=== PATIENT | male | born 1940 | race Caucasian/White ===

== ENCOUNTER 2018-10-12 21:28 | Emergency (ER) | payer MEDICARE, OTHER, SELFPAY ==
[2018-10-12 21:40] VITALS: BP 134/79; PULSE 76; RESP 14; TEMP 36.8; O2SAT 96; BMI 26.3
--- NOTE | 2018-10-12 21:54 | PC.NURSE ---
Pt fell at approx 2030,laceration above left eyebrow. Pt denies pain, denies LOC or blood thinners. Pt alert/oriented upon arrival.
[2018-10-12] MEDS: TET,DIPH,PERTUSS(ACELL),VAC/PF 0.5 ML SYRINGE IM (23:00)
--- NOTE | 2018-10-12 23:31 | PC.NURSE ---
Pt refused Head CT ordered, Dr white.
--- NOTE | 2018-10-12 23:48 | ED_ITS ---
HPI - Wound/Laceration General Chief Complaint: Wound/Laceration Stated Complaint: LACERATION LEFT UPPER SIDE Time Seen by Provider: 10/12/18 22:50 Source: patient and family Mode of arrival: ambulatory Limitations: no limitations History of Present Illness HPI narrative: Patient and state the patient jumped off the tailgate of a truck, and landed on a downsloping driveway. Patient stumbled as he landed, and fell down, striking his face on the pavement. He sustained a an abrasion and laceration to his left face. Patient denies any other injuries. He denies loss of consciousness. No neck or other spinal pain. He was ambulatory after the incident. No amnesia. No extremity pain. No rib pain. No other complaints at this time. Related Data Allergies Allergy/AdvReac Type Severity Reaction Status Date / Time No Known Drug Allergies Allergy Verified 10/12/18 21:40 Review of Systems Constitutional Denies chills, Denies fever(s), Denies lethargy and Denies weakness Eyes Denies change in vision, Denies eye discharge, Denies irritation and Denies loss of vision ENT Ears, Nose, Mouth, and Throat: Denies change in voice, Denies neck pain and Denies sore throat Cardiovascular Denies chest pain, Denies irregular heart rhythm, Denies lightheadedness, Denies palpitations, Denies dyspnea, Denies dyspnea on exertion and Denies orthopnea Respiratory Denies cough, Denies dyspnea, Denies dyspnea on exertion and Denies wheezing Gastrointestinal Gastrointestinal: Denies abdominal pain, Denies change in bowel habits, Denies diarrhea, Denies nausea and Denies vomiting Genitourinary Denies hematuria, Denies flank pain, Denies urinary incontinence and Denies urinary urgency Musculoskeletal Denies neck pain Integumentary/Breasts Denies pruritus, Denies erythema, Denies rash and Reports wounds Neurologic Denies confusion, Denies loss of vision and Denies weakness Psychiatric Denies anxiety, Denies confusion, Denies depression, Denies homicidal ideation and Denies suicidal ideation Endocrine Denies palpitations Hematologic/Lymphatic Denies easy bruising Allergic/Immunologic Denies wheezing [facility] Medical History Healthy adult (Acute) Laceration (Acute) Surgical History No pertinent past surgical history (Acute) Social History Smoking Status: Never smoker Exam Initial Vital Signs Initial Vital Signs: Vital Signs Temperature 98.3 F 10/12/18 21:40 Pulse Rate 76 10/12/18 21:40 Respiratory Rate 14 10/12/18 21:40 Blood Pressure 134/79 10/12/18 21:40 Pulse Oximetry 96 10/12/18 21:40 Const General: cooperative and well developed Nutritional Appearance: well nourished Orientation: alert, awake, oriented x3 and not confused [facility] Head: normocephalic, abrasion (Superficial, left lateral maxillary area.), laceration (Patient has a 2.5 cm laceration about 1 cm superior to his lateral left eyebrow. Bleeding is controlled. No foreign bodies are noted. No bony deformity.), No palpable skull fracture, No raccoon eyes, No scalp tenderness and No periorbital ecchymosis Ears: external ears normal Nose: external nose normal and No nasal discharge Face and sinus: face symmetric and No dry mucous membranes Mouth: oral mucosae normal and moist mucous membranes Teeth and gingiva: dentition normal Throat: tonsils normal and uvula midline Eyes General: appearance normal, both eyes and all related structures Eyelids: eyelids normal Conjunctivae: conjunctivae normal Sclera: sclerae normal Pupils: PERRL EOM: EOM intact bilaterally Neck Neck: normal visual inspection, trachea midline, No lymphadenopathy, No midline deformity and No JVD Lymphatic: No lymphedema Chest Chest: normal inspection of the chest Resp Effort & Inspection: normal respiratory effort, able to speak in complete sentences, no respiratory distress and no use of accessory muscles GI Inspection: non-distended Palpation: soft, no hepatosplenomegaly, No guarding, No pulsatile mass and No tender Auscultation: normal bowel sounds Back/Spine/Pelvis Back: No CVA tenderness Cervical Spine: cervical ROM normal and No pain with cervical ROM Thoracic/Lumbar Spine: thoracic and lumbar spine normal to inspection Skin General: no rashes or lesions noted, No jaundice and No petechiae Neuro General: alert, oriented x3, gait normal and no focal motor deficits Speech: speech normal Extrem General: full ROM, no clubbing, cyanosis or edema, no pedal edema and no calf tenderness Psych Appearance: well kempt Mental Status: mental status grossly normal Attitude: cooperative Thought Content: normal and suicidality Judgment: judgment good Procedures Laceration Repair Laceration 1: Site: face Side (If applicable): left Size (cm): 2.5 Description: linear Depth: simple, single layer Local Anesthetic: lidocaine 2% Amount of anesthesia used (mL): 4 Pre-repair: wound explored, irrigated extensively and deep structures intact Skin layer closed with: nylon Size (cm): 5-0 Number of sutures: 6 Technique: simple, interrupted Course Course Narrative: Patient's laceration was repaired, as noted above. The patient was not on any anticoagulants, but given his age and the location of injury, I feel he should have a CT scan of his head. However, patient refused head CT. He was alert, oriented, and appropriate, and understands the risks associated with increased age and head injury, but refuses CT anyway. We have discussed the usual indications for return. Orders Ordered: Discontinued Medications Diphtheria/Tetanus/Acell Pertussis (Adacel) 0.5 ml IM .ONCE ONE Stop: 10/12/18 23:39 Last Admin: 10/12/18 23:00 Dose: 0.5 ml Vital Signs - 8 hr 10/12/18 21:40 Temperature 98.3 F Pulse Rate 76 Respiratory Rate 14 Blood Pressure 134/79 Pulse Oximetry 96 MDM - Wound/Laceration Medical Records Attestation: I reviewed the patient's medical records. Discharge Plan Departure Patient Disposition: Home Clinical Impression: Laceration Discharge Date/Time: 10/12/18 23:46 Interventions: ED Discharge Assessment Last Done: 10/12/18 23:46 Instructions: DI for Laceration Repair Activity Restrictions/Additional Instructions: You will need to follow up with your doctor in 7 days for suture removal. Referrals: Darius Zhao MD [Primary Care Provider] -
== END 2018-10-12 23:46 | disposition home or self-care (01) ==
PROVIDERS: Emergency Provider Emergency Medicine; PCP Family Medicine
DX: S01.81XA Laceration without foreign body of other part of head, initial encounter (principal); W18.00XA Striking against unspecified object with subsequent fall, initial encounter
CPT/HCPCS: 12011; 90471; 99283; 90715

== ENCOUNTER 2023-03-25 17:49 | Observation (INO) | payer MEDICARE, OTHER, SELFPAY ==
[2023-03-25 17:52] VITALS: BP 147/76; PULSE 103; RESP 16; TEMP 36.7; O2SAT 99; BMI 25.7
--- NOTE | 2023-03-25 19:36 | DI.RAD.S_ITS ---
PROCEDURE: XR ACUTE ABDOMEN SERIES INDICATIONS: abdominal pain TECHNIQUE: One view chest and two views of the abdomen were acquired. COMPARISON: [facility], CR, XR CHEST 2 VIEWS, 12/09/2021, 10:30. FINDINGS: Surgical changes and devices: None. Chest: Heart size is normal for an AP study. There are bilateral lower lobe infiltrates. No pneumothorax or pleural effusion. Abdomen: Multiple air-fluid levels throughout the abdomen consistent with small bowel obstruction. No free air, pneumatosis, or portal venous gas. There is impacted stool in the rectum. No suspicious calcifications. Visualized solid organ contours appear normal. Bones: No suspicious bony lesions. IMPRESSION: 1. Bilateral lower lobe infiltrates consistent with atelectasis and/or pneumonia. 2. Multiple air-fluid levels in the abdomen consistent with small bowel obstruction. Dictated by: Andres Mayers M.D. on 03/25/2023 at 19:00 Approved by: Andres Mayers M.D. on 03/25/2023 at 19:02
[2023-03-25 20:05] VITALS: BP 132/73; PULSE 91; O2SAT 96
[2023-03-25 20:16] LABS: Add Manual Diff / Slide Review NO; Basophils Absolute Auto 0 /uL (0-100); Basophils Percent Auto 0.3 % (0-2); Eosinophils Absolute Auto 0 /uL (0-450); Eosinophils Percent Auto 0.1 % (2-4); Hematocrit 39.9 % (41-53); Hemoglobin 13.5 g/dL (13.5-17.5); Lymphocytes Absolute Auto 800 /uL (1100-4500); Lymphocytes Percent Auto 6.2 % (25-40); Mean Corpuscular Hemoglobin 31.4 PG (26-34); Mean Corpuscular Volume 92.4 fL (80-100); Monocytes Absolute Auto 1300 /uL (0-900); Monocytes Percent Auto 9.7 % (3-14); Neutrophils Absolute Auto 11100 /uL (1500-7000); Neutrophils Percent Auto 83.7 % (50-75); Platelet Count 192 X10^3/uL (150-400); Red Blood Cell Count 4.31 X10^6/uL (4.5-5.9); Red Cell Distribution Width 14.1 % (11.6-14.8); White Blood Cell Count 13.3 X10^3/uL (4.5-11.0)
[2023-03-25 20:30] VITALS: BP 131/74; PULSE 79; O2SAT 98
[2023-03-25 20:32] LABS: Alanine Aminotransferase 20 IU/L (<50); Albumin 3.8 g/dL (3.5-5.0); Albumin Globulin Ratio 1.5 (1.0-2.8); Alkaline Phosphatase 79 U/L (38-126); Aspartate Aminotransferase 30 IU/L (17-59); BUN Creatinine Ratio 20.5 (6-22); Bilirubin Total 1.3 mg/dL (0.2-1.3); Blood Urea Nitrogen 15 mg/dL (9-20); Calcium 8.7 mg/dL (8.4-10.2); Carbon Dioxide 28 mmol/L (22-32); Chloride 101 mmol/L (98-107); Estimated Glomerular Filt Rate > 60 mL/min (>60); Globulin 2.6 g/dL (1.7-4.1); Glucose 107 mg/dL (80-110); HEMOLYSIS 21 (0-50); Lipase 31 U/L (23-300); Potassium 4.3 mmol/L (3.4-5.1); Sodium 135 mmol/L (137-145); Total Protein 6.4 g/dL (6.3-8.2)
--- NOTE | 2023-03-25 20:48 | ED.ABDPAIN ---
HPI - Abdominal Pain General Chief Complaint: Abdominal Pain Stated Complaint: constipation Time Seen by Provider: 03/25/23 18:11 History of Present Illness HPI narrative: 82-year-old male nonsmoker with history of coronary artery disease, hypertension, hyperlipidemia and no prior abdominal surgeries presents with a chief complaint of a few days of constipation and building abdominal pain. He became severely constipated last night and though he is still passing gas he had not passed any stool as the day wore on. He took 2 different stool softeners this morning and proceeded to develop multiple episodes of loose stool. He has waxing and waning lower abdominal pain that seems to be worse when he moves and improves with rest. He denies any prior abdominal surgeries. He is still passing gas. He denies change in medications or diet. Related Data Home Medications Medication Instructions Recorded Confirmed aspirin 81 mg tablet,delayed 81 mg PO DAILY 03/25/23 03/25/23 release atorvastatin 80 mg tablet 80 mg PO BEDTIME 03/25/23 03/25/23 finasteride 5 mg tablet 5 mg PO DAILY 03/25/23 03/25/23 levothyroxine 100 mcg tablet 100 mcg PO DAILY 03/25/23 03/25/23 metoprolol succinate 25 mg 25 mg PO BEDTIME 03/25/23 03/25/23 tablet,extended release 24 hr tamsulosin 0.4 mg capsule 0.4 mg PO DAILY 03/25/23 03/25/23 Allergies Allergy/AdvReac Type Severity Reaction Status Date / Time No Known Drug Allergies Allergy Verified 03/25/23 17:52 Review of Systems Review of Systems Narrative: GENERAL: Denies chills, fatigue, malaise, fever, sweats. HEENT: Denies sinus pain, ear pain, sore throat, difficulty swallowing, dizziness. RESPIRATORY: Denies dyspnea, cough, wheezing, hemoptysis, sputum. CARDIOVASCULAR: Denies chest pain, palpitations, orthopnea, edema, GASTROINTESTINAL: See HPI : Denies dysuria, frequency, incontinence, hematuria, urinary retention. MUSCULOSKELETAL: denies weakness, joint pain, or bony pain SKIN: Denies rash, skin lesions, or other NEUROLOGIC: Denies weakness, headache, numbness, change in speech, confusion, seizures, incoordination. PSYCHIATRIC: No concerning psychosocial issues. 12 point review of systems is negative except for those stated above Patient History Medical History (Updated 03/25/23 @ 23:14 by Renato Krishna DO) Healthy adult Laceration Surgical History No pertinent past surgical history Social History household members: spouse Smoking Status: Never smoker alcohol intake: current Smoking Status: Never smoker alcohol intake frequency: 0-2 drinks per day Substance Use Type: does not use Exam Narrative Exam Narrative: GENERAL: [82] year old patient appears stated age. Well-developed patient, in mild distress. HEAD: Atraumatic. Normocephalic. EYES: Pupils equal round and reactive. Extraocular motions intact. No scleral icterus. No injection or drainage. ENT: Nose without bleeding, purulent drainage. Throat without erythema, tonsillar hypertrophy or exudate. Airway patent. NECK: Trachea midline. Non tender CARDIOVASCULAR: Regular rate and rhythm without murmurs, gallops, or rubs. RESPIRATORY: Clear to auscultation. Breath sounds equal bilaterally. No wheezes, rales, or rhonchi. GASTROINTESTINAL: Abdomen soft, tender in the central lower abdomen, bowel sounds present but decreased, at times high pitched. EXTREMITIES: No edema or joint tenderness. BACK: Nontender without deformity or crepitance. No flank tenderness. NEURO: AOx3. SKIN: No rash or erythema of visible areas Initial Vital Signs Initial Vital Signs: Vital Signs Temperature 98.0 F 03/25/23 17:52 Pulse Rate 103 H 03/25/23 17:52 Respiratory Rate 16 03/25/23 17:52 Blood Pressure 147/76 H 03/25/23 17:52 Pulse Oximetry 99 03/25/23 17:52 Oxygen Delivery Method Room Air 03/25/23 17:52 Course Orders Ordered: ED Orders 03/25/23 18:00 EKG-12 Lead Stat 03/25/23 19:36 XR acute abdomen series Stat 03/25/23 20:08 Complete Blood Count AUTO DIFF Stat Comprehensive Metabolic Panel Stat Lipase Stat Heparin Sodium (Porcine) (Heparin 5,000 Unit/Ml Vial) 5,000 unit SUBCUT BID KASEY Hydromorphone HCl (Hydromorphone 0.5 Mg Inj) 0.5 mg IV Q2H PRN PRN Reason: Pain, Severe (7-10) Dextrose/Sodium Chloride (Dextrose 5%-0.45% Ns) 1,000 mls @ 100 mls/hr IV CONT KASEY Last Admin: 03/25/23 22:44 Dose: 100 mls/hr Documented By: SCOTTIE Naloxone HCl (Naloxone 0.4 Mg/Ml Vial) 0.2 mg IV Q2MIN PRN PRN Reason: Opiate Reversal Ondansetron HCl (Ondansetron 4 Mg Odt) 4 mg PO NOW PRN PRN Reason: Nausea And Vomiting Ondansetron HCl (Ondansetron 4 Mg/2 Ml Inj) 4 mg IV NOW PRN PRN Reason: Nausea And Vomiting Ondansetron HCl (Ondansetron 4 Mg/2 Ml Inj) 4 mg IV Q8HR PRN PRN Reason: Nausea And Vomiting Consultations Consultation #1: discussed with Dr. Castanon. Happy to consult, request admission to Hospital Vital Signs Vital signs: Vital Signs - 8 hr 03/25/23 17:52 03/25/23 20:05 03/25/23 20:05 Temperature 98.0 F Pulse Rate 103 H 91 H Respiratory Rate 16 Blood Pressure 147/76 H 132/73 Pulse Oximetry 99 96 Oxygen Delivery Method Room Air 03/25/23 20:30 03/25/23 20:30 03/25/23 21:00 Temperature Pulse Rate 79 Respiratory Rate Blood Pressure 131/74 139/70 Pulse Oximetry 98 Oxygen Delivery Method 03/25/23 21:00 Temperature Pulse Rate 69 Respiratory Rate Blood Pressure Pulse Oximetry 99 Oxygen Delivery Method MDM - Abdominal Pain Lab Data 03/25/23 20:08 03/25/23 20:08 Labs: Lab Results 03/25/23 03/25/23 Range/Units 20:08 20:08 WBC 13.3 H (4.5-11.0) X10^3/uL RBC 4.31 L (4.5-5.9) X10^6/uL Hgb 13.5 (13.5-17.5) g/dL Hct 39.9 L (41-53) % MCV 92.4 (80-100) fL MCH 31.4 (26-34) PG MCHC 34.0 (30-36) % RDW 14.1 (11.6-14.8) % Plt Count 192 (150-400) X10^3/uL Neut % (Auto) 83.7 H (50-75) % Lymph % (Auto) 6.2 L (25-40) % [place] % (Auto) 9.7 (3-14) % Eos % (Auto) 0.1 L (2-4) % Baso % (Auto) 0.3 (0-2) % Neut # (Auto) 01329 H (3419-9267) /uL Lymph # (Auto) 800 L (4943-5892) /uL [place] # (Auto) 1300 H (0-900) /uL Eos # (Auto) 0 (0-450) /uL Baso # (Auto) 0 (0-100) /uL Sodium 135 L (137-145) mmol/L Potassium 4.3 (3.4-5.1) mmol/L Chloride 101 (98-107) mmol/L Carbon Dioxide 28 (22-32) mmol/L BUN 15 (9-20) mg/dL Creatinine 0.73 (0.66-1.25) mg/dL Estimated GFR > 60 (>60) mL/min BUN/Creatinine Ratio 20.5 (6-22) Glucose 107 (80-110) mg/dL Calcium 8.7 (8.4-10.2) mg/dL Total Bilirubin 1.3 (0.2-1.3) mg/dL AST 30 (17-59) IU/L ALT 20 (<50) IU/L Alkaline Phosphatase 79 (38-126) U/L Total Protein 6.4 (6.3-8.2) g/dL Albumin 3.8 (3.5-5.0) g/dL Globulin 2.6 (1.7-4.1) g/dL Albumin/Globulin Ratio 1.5 (1.0-2.8) Lipase 31 (23-300) U/L Discharge Plan Departure Patient Disposition: Admitted As Inpatient Clinical Impression: Small bowel obstruction Admit Date/Time: 03/25/23 21:38 Admit Provider: Jay Diaz
[2023-03-25 21:00] VITALS: BP 139/70; PULSE 69; O2SAT 99
[2023-03-25 21:39] VITALS: BMI 25.7
[2023-03-25 21:41] VITALS: BP 149/70; PULSE 79; RESP 18; TEMP 37.2; O2SAT 94
--- NOTE | 2023-03-25 22:04 | P.HP_ITS ---
History of Present Illness History of Present Illness Date Patient Seen: 03/25/23 Time Patient Seen: 22:05 Chief complaint: constipation Narrative: The patient is a 82-year-old male with a history of CAD, hypertension, and hyperlipidemia as well as chronic BPH. He has 1-2 days' history of lower abdominal pain, lack of flatus. Because of persistent intermittent abdominal pain he presented to the ED. There imaging included a chest and abdomen x-ray revealing multiple air-fluid levels and bibasilar lung atelectasis. He denies any chest pain, or shortness of breath. No recent symptoms of cough, fevers or chills. He has no history of abdomen surgery. He would a colonoscopy 5 years ago, this was said to be fairly unremarkable. He denies a history of episode similar to what is happening now. He denies any nausea or vomiting. He had a little bit of abdominal distention. He denies flatus today. No bowel movement since yesterday. No hematemesis, or rectal bleeding. The ED physician discussed with surgery on-call, Dr. Beck. They will see the patient in the morning. PENDING SALE TO [facility] Medical History Healthy adult Laceration Surgical History No pertinent past surgical history Social History household members: spouse Smoking Status: Never smoker alcohol intake: current Meds Home Medications and Allergies Home Medications Medication Instructions Recorded Confirmed Type aspirin 81 mg tablet,delayed 81 mg PO DAILY 03/25/23 03/25/23 History release atorvastatin 80 mg tablet 80 mg PO BEDTIME 03/25/23 03/25/23 History finasteride 5 mg tablet 5 mg PO DAILY 03/25/23 03/25/23 History levothyroxine 100 mcg tablet 100 mcg PO DAILY 03/25/23 03/25/23 History metoprolol succinate 25 mg 25 mg PO BEDTIME 03/25/23 03/25/23 History tablet,extended release 24 hr tamsulosin 0.4 mg capsule 0.4 mg PO DAILY 03/25/23 03/25/23 History Allergies Allergy/AdvReac Type Severity Reaction Status Date / Time No Known Drug Allergies Allergy Verified 03/25/23 17:52 Review of Systems Review of Systems Narrative: Abdomen pain and constipation with no flatus for 1 day. No N,V. No chest pain or dyspnea. Chronic nocturia (on flomax). All else reviewed and otherwise negative. Exam Vital Signs (past 8 hours): - 03/25/23 17:52 03/25/23 20:05 03/25/23 20:05 Temperature 98.0 F Pulse Rate 103 H 91 H Respiratory Rate 16 Blood Pressure 147/76 H 132/73 Pulse Oximetry 99 96 Oxygen Delivery Method Room Air Oxygen Flow Rate 03/25/23 20:30 03/25/23 20:30 03/25/23 21:00 Temperature Pulse Rate 79 Respiratory Rate Blood Pressure 131/74 139/70 Pulse Oximetry 98 Oxygen Delivery Method Oxygen Flow Rate 03/25/23 21:00 03/25/23 21:41 Temperature 98.9 F Pulse Rate 69 79 Respiratory Rate 18 Blood Pressure 149/70 H Pulse Oximetry 99 94 Oxygen Delivery Method Oxygen Flow Rate 0 Oxygen Delivery Method Room Air Oxygen Flow Rate 0 Narrative Exam Narrative: Normal affect and speech, NAD. Conjugate gaze, no facial droop. Neck supple, normal range of motion Lungs clear with normal effort Heart regular, no murmur. Abdomen ND and NT. Hyperactive BT's Extremities free of edema Skin no rash. Good pulses Objective Imaging Abdominal x-ray: Radiologist's impression: IMPRESSION:? 1. Bilateral lower lobe infiltrates consistent with atelectasis and/or pneumonia. 2. Multiple air-fluid levels in the abdomen consistent with small bowel obstruction.? ? Labs 03/25/23 20:08 03/25/23 20:08 Labs: Laboratory Results - last 24 hr 03/25/23 03/25/23 20:08 20:08 WBC 13.3 H RBC 4.31 L Hgb 13.5 Hct 39.9 L MCV 92.4 MCH 31.4 MCHC 34.0 RDW 14.1 Plt Count 192 Neut % (Auto) 83.7 H Lymph % (Auto) 6.2 L [place] % (Auto) 9.7 Eos % (Auto) 0.1 L Baso % (Auto) 0.3 Neut # (Auto) 12119 H Lymph # (Auto) 800 L [place] # (Auto) 1300 H Eos # (Auto) 0 Baso # (Auto) 0 Sodium 135 L Potassium 4.3 Chloride 101 Carbon Dioxide 28 BUN 15 Creatinine 0.73 Estimated GFR > 60 BUN/Creatinine Ratio 20.5 Glucose 107 Calcium 8.7 Total Bilirubin 1.3 AST 30 ALT 20 Alkaline Phosphatase 79 Total Protein 6.4 Albumin 3.8 Globulin 2.6 Albumin/Globulin Ratio 1.5 Lipase 31 Assessment & Plan Assessment & Plan narrative: 1. Small bowel obstruction, present on admission and active. 2. Lung atelectasis on CXR, present on admission and active. 3. Chronic BPH, present on admission and active. 4. CAD, present on admission and stable. 5. Essential hypertension, present on admission and stable. 6. Hypothyroidism, present on admission and stable. Plan: -NPO -IVF -Analgesia prn -Surgical consult (Dr Castanon contacted by ED). -Follow lungs clinically -resume Flomax when able and watch for retention. -resume other medications when able, and watch for symptoms of dyspnea or chest pain. Full code Time Spent With Patient Time with patient: 30 to 49 minutes with 50% spent counseling/coordinating care Quality MIPS - Admit I confirm the patient?s Advance Care Plan is present, Code status is documented, Surrogate decision maker is in patient?s record [If Yes, STOP here]: Yes
[2023-03-25] MEDS: DEXTROSE 5%-0.45% NS 1,000 ML 100 ML IV (22:44)
[2023-03-26 00:29] LABS: Appearance Urine UA CLEAR; Bilirubin Urine UA NEGATIVE (NEGATIVE); Color Urine UA YELLOW; Glucose Urine UA NEGATIVE (Negative); Ketones Urine UA 2+ (NEGATIVE); Leukocyte Esterase Urine UA NEGATIVE (NEGATIVE); Nitrite Urine UA NEGATIVE (Negative); Occult Blood Urine UA TRACE-INTACT (Negative); Protein Urine UA NEGATIVE (Negative); pH Urine UA 6.5 (4.5-8.0)
[2023-03-26 00:45] LABS: Bacteria Urine None Seen; Culture Indicated Urine Cult Not Indicated; RBC Urine 1-5/HPF (0-5/HPF); Squamous Epithelial Cell Urine None Seen (0-5/HPF); WBC Urine None Seen (0-5/HPF)
[2023-03-26 04:30] VITALS: BP 117/66; PULSE 72; RESP 18; TEMP 37; O2SAT 96
--- NOTE | 2023-03-26 04:58 | PC.NURSE ---
Admit/NOC Shift Note- Patient arrived to room via stretcher from ER at 2130. Patient able to walk with steady gait from Stretcher to bed and to bathroom. Patient alert and oriented and able to make needs known to staff. Admit questions done, home medications reviewed with patient and medication list provided. Patient oriented to bed and bed controls, room, lights, phone, menu, bathroom, and call springer/TV remote. patient agrees to call for assistance due to SCD's and IV line. safety measures in place. Call springer and phone within reach. will continue to monitor.
[2023-03-26 05:07] LABS: BUN Creatinine Ratio 17.8 (6-22); Blood Urea Nitrogen 13 mg/dL (9-20); Calcium 8.3 mg/dL (8.4-10.2); Carbon Dioxide 27 mmol/L (22-32); Chloride 103 mmol/L (98-107); Estimated Glomerular Filt Rate > 60 mL/min (>60); Glucose 121 mg/dL (80-110); HEMOLYSIS 18 (0-50); Potassium 3.8 mmol/L (3.4-5.1); Sodium 133 mmol/L (137-145)
[2023-03-26 05:08] LABS: Add Manual Diff / Slide Review NO; Basophils Absolute Auto 0 /uL (0-100); Basophils Percent Auto 0.2 % (0-2); Eosinophils Absolute Auto 100 /uL (0-450); Eosinophils Percent Auto 1.3 % (2-4); Hematocrit 38.6 % (41-53); Hemoglobin 13.1 g/dL (13.5-17.5); Lymphocytes Absolute Auto 1100 /uL (1100-4500); Lymphocytes Percent Auto 10.1 % (25-40); Mean Corpuscular HGB Conc 34.1 % (30-36); Mean Corpuscular Hemoglobin 31.4 PG (26-34); Mean Corpuscular Volume 92.3 fL (80-100); Monocytes Absolute Auto 1400 /uL (0-900); Monocytes Percent Auto 12.4 % (3-14); Neutrophils Absolute Auto 8500 /uL (1500-7000); Platelet Count 196 X10^3/uL (150-400); Red Blood Cell Count 4.18 X10^6/uL (4.5-5.9); Red Cell Distribution Width 14.6 % (11.6-14.8); White Blood Cell Count 11.2 X10^3/uL (4.5-11.0)
--- NOTE | 2023-03-26 07:22 | PM.PN.1 ---
Subjective Subjective Interval history: 82-year-old gentleman with coronary artery disease, hypertension, hyperlipidemia, BPH who was admitted overnight with suspected small-bowel obstruction. Reports he is feeling okay today. He continues to be frustrated that he has not had a bowel movement. No significant abdominal pain but he does describe his abdomen is feeling hard. No nausea. No other complaints. Exam Vital Signs (past 8 hours): - 03/26/23 04:30 Temperature 98.6 F Pulse Rate 72 Respiratory Rate 18 Blood Pressure 117/66 Pulse Oximetry 96 Oxygen Flow Rate 0 Oxygen Delivery Method Room Air Oxygen Flow Rate 0 Narrative Exam Narrative: GEN: Pleasant elderly male, Alert and oriented x 3, NAD HEENT:NC, Face symmetric CHEST: Respiratory excursions symmetric, CTAB CV: RRR, no M/R/G ABD: Slightly firm, NT/ND, BT present in all 4 quadrants, no organomegaly or masses EXTR: warm, well perfused, no C/C/E SKIN: warm and dry, no rash NEURO: Alert and oriented x 3, nonfocal Objective Labs 03/26/23 04:50 03/26/23 04:50 Labs: Laboratory Results - last 24 hr 03/25/23 03/25/23 03/25/23 20:08 20:08 23:36 WBC 13.3 H RBC 4.31 L Hgb 13.5 Hct 39.9 L MCV 92.4 MCH 31.4 MCHC 34.0 RDW 14.1 Plt Count 192 Neut % (Auto) 83.7 H Lymph % (Auto) 6.2 L [place] % (Auto) 9.7 Eos % (Auto) 0.1 L Baso % (Auto) 0.3 Neut # (Auto) 36034 H Lymph # (Auto) 800 L [place] # (Auto) 1300 H Eos # (Auto) 0 Baso # (Auto) 0 Sodium 135 L Potassium 4.3 Chloride 101 Carbon Dioxide 28 BUN 15 Creatinine 0.73 Estimated GFR > 60 BUN/Creatinine Ratio 20.5 Glucose 107 Calcium 8.7 Total Bilirubin 1.3 AST 30 ALT 20 Alkaline Phosphatase 79 Total Protein 6.4 Albumin 3.8 Globulin 2.6 Albumin/Globulin Ratio 1.5 Lipase 31 Urine Color Yellow Urine Appearance Clear Urine pH 6.5 Ur Specific [place] 1.010 Urine Protein Negative Urine Glucose (UA) Negative Urine Ketones 2+ H Urine Occult Blood Trace-intact Urine Nitrate Negative Urine Bilirubin Negative Urine Urobilinogen 1.0 Ur Leukocyte Esterase Negative Urine RBC 1-5/hpf Urine WBC None seen Ur Squamous Epith Cells None seen Urine Bacteria None seen Ur Culture Indicated? Cult not indicated 03/26/23 03/26/23 04:50 04:50 WBC 11.2 H RBC 4.18 L Hgb 13.1 L Hct 38.6 L MCV 92.3 MCH 31.4 MCHC 34.1 RDW 14.6 Plt Count 196 Neut % (Auto) 76.0 H Lymph % (Auto) 10.1 L [place] % (Auto) 12.4 Eos % (Auto) 1.3 L Baso % (Auto) 0.2 Neut # (Auto) 8500 H Lymph # (Auto) 1100 [place] # (Auto) 1400 H Eos # (Auto) 100 Baso # (Auto) 0 Sodium 133 L Potassium 3.8 Chloride 103 Carbon Dioxide 27 BUN 13 Creatinine 0.73 Estimated GFR > 60 BUN/Creatinine Ratio 17.8 Glucose 121 H Calcium 8.3 L Total Bilirubin AST ALT Alkaline Phosphatase Total Protein Albumin Globulin Albumin/Globulin Ratio Lipase Urine Color Urine Appearance Urine pH Ur Specific [place] Urine Protein Urine Glucose (UA) Urine Ketones Urine Occult Blood Urine Nitrate Urine Bilirubin Urine Urobilinogen Ur Leukocyte Esterase Urine RBC Urine WBC Ur Squamous Epith Cells Urine Bacteria Ur Culture Indicated? ON LICENSE OF [facility] Medical History (Updated 03/25/23 @ 23:14 by Renato Krishna DO) Healthy adult Laceration Surgical History No pertinent past surgical history Social History household members: spouse Smoking Status: Never smoker alcohol intake: current Assessment & Plan Assessment & Plan narrative: 1. Small-bowel obstruction X-ray on admission revealed multiple air-fluid levels in the abdomen consistent with small-bowel obstruction. Will obtain abdominal CT to evaluate for transition point. May benefit from Gastrografin challenge. Will defer to General surgery. 2. Leukocytosis On admission his white blood cell count was 13.3. It is down to 11.2 today. Likely reactive in nature. 3. Hyponatremia Sodium was 135 on admission. It is down to 133 today. Likely secondary to decreased oral intake with a bowel obstruction. 4. Mild anemia Hemoglobin was 13.5 on admission and just mildly anemic today at 13.1. 5. Coronary artery disease At baseline, he is on aspirin, atorvastatin, and metoprolol. These are being held for now as he is NPO. 6. Hypertension Blood pressure currently normotensive despite being off of his metoprolol. 7. Bilateral infiltrates on chest x-ray, reflecting atelectasis versus pneumonia He has been afebrile with normal respiratory rate and oxygen saturations. Suspect likely atelectasis. Will add incentive spirometer. 8. BPH Typically treated with tamsulosin and finasteride. These have been held due to his NPO status. Will monitor for urinary retention. 9. Hypothyroidism Usual dose of levothyroxine is 100 mcg daily. This has been held as he is NPO. Code status Full Prophylaxis On heparin Disposition Pending Quality VTE Deep Vein Thrombosis/Pulmonary Embolism Present on Admission: No
--- NOTE | 2023-03-26 07:26 | DI.CT.S_ITS ---
PROCEDURE: CT ABDOMEN PELVIS W CON INDICATIONS: SMALL BOWEL OBSTRUCTION TECHNIQUE: After the administration of intravenous contrast, axial sections acquired from the lung bases to the pubic symphysis. Coronal and sagittal reformats were performed. For radiation dose reduction, the following was used: automated exposure control, adjustment of mA and/or kV according to patient size. COMPARISON: None. FINDINGS: Image quality: Excellent. Lung bases: Unremarkable. Heart: No significant findings. ABDOMEN: Liver: Unremarkable. Gallbladder: Unremarkable. Biliary ducts: Unremarkable. Pancreas: Unremarkable. Spleen: Subcentimeter hypoattenuating lesions, likely benign. Adrenal Glands: 1.4 cm right adrenal nodule with indeterminate attenuation. Kidneys and Ureters: Renal sinus cysts without hydronephrosis. Stomach and Bowel: Normal colonic caliber. There is a large rectal and sigmoid colonic stool load. No asymmetrical rectal wall thickening. Peritoneum: Mild fat stranding and presacral free fluid. Ventral Wall: Tiny umbilical hernia containing fat Abdominal Nodes: No retroperitoneal or mesenteric adenopathy by size criteria. Vessels: Aorta and inferior vena cava are normal in size. PELVIS: Pelvic Organs: Prostatomegaly. Bladder: Bladder wall diverticula, consistent with chronic outlet obstruction. Pelvic Nodes: No enlarged lymph nodes. Miscellaneous: No hernias are seen. Bones: Multilevel vertebral body height loss without endplate retropulsion.. IMPRESSION: Large rectal and sigmoid colonic stool load, without asymmetric wall thickening. However, presacral edema is present, which may suggest early stercoral proctitis in the appropriate clinical setting. No bowel obstruction. Right adrenal nodule measuring 1.4 cm, with indeterminate attenuation. Consider follow-up with nonurgent adrenal mass CT for further characterization. Dictated by: Everton Holland M.D. on 03/26/2023 at 9:12 Approved by: Everton Holland M.D. on 03/26/2023 at 9:16
--- NOTE | 2023-03-26 08:27 | PC.NURSE ---
A&O, Follows commands. Offers no overt c/o pain though is concerned about constipation. Spoke with CT. Pt to CT shortly.
[2023-03-26 09:00] VITALS: BP 124/73; PULSE 70; RESP 15; TEMP 37; O2SAT 97
[2023-03-26] MEDS: HEPARIN 5,000 UNIT/ML VIAL 5000 UNIT SUBCUT ×2 (09:35→20:35)
[2023-03-26] MEDS: polyethylene glycoL 3350 17 GM POWD.PACK PO (11:15)
[2023-03-26] MEDS: SENNOSIDES 8.6 MG TABLET PO ×2 (11:15→20:36)
[2023-03-26] MEDS: MINERAL OIL 1 EACH ENEMA PR (11:15)
[2023-03-26] MEDS: DOCUSATE 100 MG CAPSULE PO ×2 (11:15→20:35)
--- NOTE | 2023-03-26 11:16 | CM.DANOTE ---
Initial DCP Assessment Note Pt is an 82 yo male, resident of [place], presents with abd pain, admitted for suspected SBO CT scan shows no SBO, shows significant fecal load and possible stercoral colitis per Dr Gentile's prog note. Patient will be given enema today, clear liquid diet, advance as tolerated PCP: None Payer: [employer] Reviewed chart, met w/patient this morning to introduce role. Patient was laying in bed, eagerly awaiting the arrival of ANDREA Madera to start his enema. 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 Patient plans to drive himself home upon discharge. No barriers identified at this time to patient's safe discharge home w/family to assist; close outpatient f/u recommended. MARGARITA Corona Discharge Planning/Care Management CM Discharge Assessment Start: 03/26/23 11:13 Freq: Status: Active Protocol: Document 03/26/23 11:13 SILVER (Rec: 03/26/23 11:16 SILVER [id number]) Discharge Planning Assessment Assigned Mortgage Loan Processing Clerk MARGARITA Zuñiga DPOA/Assigned Designee Name Zhane Arias, spouse Contact Information [phone] Advance Directives? No History Provided By Patient,Medical Record Prior Living Arrangements House Household Members spouse Type of transporation used prior to Drives own vehicle admit Independent with ADL's Yes Is patient alert and oriented? Yes Barriers to Discharge No Discharge Plan Home Transportation Arrangement Patient plans to drive himself home Referrals Initiated None needed
[2023-03-26] MEDS: FINASTERIDE 5 MG TABLET PO (16:48)
[2023-03-26] MEDS: TAMSULOSIN 0.4 MG CAPSULE PO (16:49)
--- NOTE | 2023-03-26 16:55 | PC.NURSE ---
pt reported he had loose BM, moderate size around 1630
[2023-03-26 17:00] VITALS: BP 139/75; PULSE 68; RESP 18; TEMP 36.9; O2SAT 95
[2023-03-26] MEDS: DEXTROSE 5%-0.45% NS 1,000 ML 100 ML IV (19:02)
[2023-03-26] MEDS: ATORVASTATIN 20 MG TABLET 80 MG PO (20:35)
[2023-03-26 20:36] VITALS: BP 139/75; PULSE 68
[2023-03-26] MEDS: METOPROLOL ER 25 MG TABLET PO (20:36)
[2023-03-26 21:12] VITALS: BP 112/64; PULSE 68; RESP 20; TEMP 37.7; O2SAT 97
[2023-03-26 21:30] VITALS: BP 114/62; PULSE 64
[2023-03-27 05:00] VITALS: BP 91/54; PULSE 61; RESP 19; TEMP 36.9; O2SAT 95
[2023-03-27 05:35] VITALS: BP 103/57
[2023-03-27] MEDS: LEVOTHYROXINE 100 MCG TABLET PO (05:39)
[2023-03-27 08:00] VITALS: BP 104/59; PULSE 58; RESP 17; TEMP 36.5; O2SAT 99
[2023-03-27 08:13] LABS: Add Manual Diff / Slide Review NO; Basophils Absolute Auto 0 /uL (0-100); Basophils Percent Auto 0.4 % (0-2); Eosinophils Absolute Auto 400 /uL (0-450); Eosinophils Percent Auto 5.5 % (2-4); Hematocrit 37.6 % (41-53); Hemoglobin 12.8 g/dL (13.5-17.5); Lymphocytes Absolute Auto 1400 /uL (1100-4500); Lymphocytes Percent Auto 17.1 % (25-40); Mean Corpuscular HGB Conc 34.1 % (30-36); Mean Corpuscular Hemoglobin 31.7 PG (26-34); Mean Corpuscular Volume 92.7 fL (80-100); Monocytes Absolute Auto 1100 /uL (0-900); Monocytes Percent Auto 13.4 % (3-14); Neutrophils Absolute Auto 5200 /uL (1500-7000); Neutrophils Percent Auto 63.6 % (50-75); Platelet Count 183 X10^3/uL (150-400); Red Blood Cell Count 4.06 X10^6/uL (4.5-5.9); Red Cell Distribution Width 14.6 % (11.6-14.8); White Blood Cell Count 8.1 X10^3/uL (4.5-11.0)
[2023-03-27 08:24] LABS: BUN Creatinine Ratio 10.5 (6-22); Blood Urea Nitrogen 8 mg/dL (9-20); Calcium 8.3 mg/dL (8.4-10.2); Carbon Dioxide 28 mmol/L (22-32); Chloride 104 mmol/L (98-107); Estimated Glomerular Filt Rate > 60 mL/min (>60); Glucose 107 mg/dL (80-110); HEMOLYSIS < 15 (0-50); Potassium 3.9 mmol/L (3.4-5.1); Sodium 136 mmol/L (137-145)
[2023-03-27] MEDS: ASPIRIN EC 81 MG TABLET PO (09:01)
[2023-03-27] MEDS: FINASTERIDE 5 MG TABLET PO (09:01)
[2023-03-27] MEDS: DOCUSATE 100 MG CAPSULE PO (09:01)
[2023-03-27] MEDS: TAMSULOSIN 0.4 MG CAPSULE PO (09:02)
[2023-03-27] MEDS: HEPARIN 5,000 UNIT/ML VIAL 5000 UNIT SUBCUT (09:02)
[2023-03-27] MEDS: SENNOSIDES 8.6 MG TABLET PO (09:02)
--- NOTE | 2023-03-27 09:38 | PM.DS.1 ---
History of Present Illness History of Present Illness Chief complaint: constipation Narrative: per history and physical: The patient is a 82-year-old male with a history of CAD, hypertension, and hyperlipidemia as well as chronic BPH.? He has 1-2 days' history of lower abdominal pain, lack of flatus.? Because of persistent intermittent abdominal pain he presented to the ED.? There imaging included a chest and abdomen x-ray revealing multiple air-fluid levels and bibasilar lung atelectasis.? He denies any chest pain, or shortness of breath.? No recent symptoms of cough, fevers or chills.? He has no history of abdomen surgery.? He would a colonoscopy 5 years ago, this was said to be fairly unremarkable.? He denies a history of episode similar to what is happening now.? He denies any nausea or vomiting.? He had a little bit of abdominal distention.? He denies flatus today.? No bowel movement since yesterday.? No hematemesis, or rectal bleeding. The ED physician discussed with surgery on-call, Dr. Beck.? They will see the patient in the morning. Discharge Providers Provider Date of admission: 03/25/23 21:38 Discharge Date: 03/27/23 Discharge provider: Zoe Gentile MD Summary Hospital Course Discharge Diagnosis: 1. Small bowel obstruction - ruled out 2. Stercoral colitis 3. Constipation, improved 4. Leukocytosis, likely reactive, resolved 5. Hyponatremia improved 6. Mild anemia, hemoglobin 12.8 on discharge 7. Coronary artery disease, chronic, stable 8. Hypertension, chronic, stable 9. Atelectasis by chest x-ray 10. BPH, chronic, stable 11. Hypothyroidism, chronic, stable Hospital Course: 82-year-old male with a history of CAD, hypertension, and hyperlipidemia as well as chronic BPH.? He has 1-2 days' history of lower abdominal pain, lack of flatus.? Because of persistent intermittent abdominal pain he presented to the ED.? There imaging included a chest and abdomen x-ray revealing multiple air-fluid levels and bibasilar lung atelectasis.? He denies any chest pain, or shortness of breath.? No recent symptoms of cough, fevers or chills.? He has no history of abdomen surgery.? He would a colonoscopy 5 years ago, this was said to be fairly unremarkable.? He denies a history of episode similar to what is happening now.? He denies any nausea or vomiting.? He had a little bit of abdominal distention. No hematemesis, or rectal bleeding. Initial x-ray was concerning for small bowel obstruction. CT scan was subsequently performed on the day following admission and revealed large rectal and sigmoid colonic stool load without asymmetric wall thickening. There was some presacral edema present which might suggest early stercoral proctitis. No bowel obstruction. There was a right adrenal nodule measuring 1.[address] could be done on an outpatient basis for follow-up. Status at Discharge Cognitive/behavioral status at discharge: at baseline, oriented Functional status at discharge: independent ambulation Overall status at discharge: patient is progressing back to baseline Time Spent with Patient Time spent: Greater than 30 minutes Exam Vital Signs (past 8 hours): - 03/27/23 05:00 03/27/23 05:35 03/27/23 08:00 Temperature 98.5 F 97.7 F Pulse Rate 61 58 L Respiratory Rate 19 17 Blood Pressure 91/54 L 103/57 L 104/59 L Pulse Oximetry 95 99 Oxygen Flow Rate 0 0 Oxygen Delivery Method Room Air Oxygen Flow Rate 0 Narrative Exam Narrative: GEN: Pleasant elderly male, Alert and oriented x 3, NAD HEENT:NC, Face symmetric CHEST: Respiratory excursions symmetric, CTAB CV: RRR, no M/R/G ABD: Soft, NT/ND, BT present in all 4 quadrants, no organomegaly or masses EXTR: warm, well perfused, no C/C/E SKIN: warm and dry, no rash NEURO: Alert and oriented x 3, nonfocal Objective Labs 03/27/23 08:05 03/27/23 08:05 Labs: Laboratory Results - last 24 hr 03/27/23 03/27/23 08:05 08:05 WBC 8.1 RBC 4.06 L Hgb 12.8 L Hct 37.6 L MCV 92.7 MCH 31.7 MCHC 34.1 RDW 14.6 Plt Count 183 Neut % (Auto) 63.6 Lymph % (Auto) 17.1 L [place] % (Auto) 13.4 Eos % (Auto) 5.5 H Baso % (Auto) 0.4 Neut # (Auto) 5200 Lymph # (Auto) 1400 [place] # (Auto) 1100 H Eos # (Auto) 400 Baso # (Auto) 0 Sodium 136 L Potassium 3.9 Chloride 104 Carbon Dioxide 28 BUN 8 L Creatinine 0.76 Estimated GFR > 60 BUN/Creatinine Ratio 10.5 Glucose 107 Calcium 8.3 L [facility] Medical History (Updated 03/25/23 @ 23:14 by Renato Krishna DO) Healthy adult Laceration Surgical History No pertinent past surgical history Social History household members: spouse Smoking Status: Never smoker alcohol intake: current Discharge Plan Discharge Plan Patient Disposition: Home Provider Discharge Comment: You were admitted due to concern about a bowel obstruction. Fortunately, this was not the case. You do have a mild colitis in your rectum and had significant constipation. You received an enema as well as multiple bowel medications with reasonable results thus far. Recommendations: Take Colace 100 mg twice daily ( stool softener ) take MiraLax 1 cap full daily (laxative) if you have not had a bowel movement in 2 days, please add senna daily if you have not had a bowel movement in 3 days, increase senna to twice daily and consider taking a Dulcolax suppository please follow-up with your primary care provider in the next week or 2. Follow-up in the emergency department: Fevers, worsening abdominal pain, inability to hold down food or fluids F/u needed: See your PCP to follow-up on adrenal mass seen incidentally on yesterday's CT. You may need a specialized CT done to further assess this. Discharge orders & Medications Prescriptions: New docusate sodium 100 mg Capsule 100 mg PO BID Qty: 60 0RF Continued atorvastatin 80 mg tablet 80 mg PO BEDTIME levothyroxine 100 mcg tablet 100 mcg PO DAILY tamsulosin 0.4 mg capsule 0.4 mg PO DAILY metoprolol succinate 25 mg tablet extended release 24 hr 25 mg PO BEDTIME finasteride 5 mg tablet 5 mg PO DAILY aspirin 81 mg Tablet,Delayed Release (Dr/Ec) 81 mg PO DAILY Medication counseling provided by Pharmacist: No Diet/Activity/Treatments Diet: Regular Activity: As tolerated Oxygen: N/A Visit Report/Discharge Packet Instructions: DI for Constipation, DI for Colitis Stand Alone Forms: Patient Portal/API, Stroke Signs & Symptoms Quality VTE Deep Vein Thrombosis/Pulmonary Embolism Present on Admission: No
--- NOTE | 2023-03-27 11:04 | PC.NURSE ---
Pt A&Ox4, VSS. IV removed, pt tolerated well. Discharge packet reviewed, pt able to teach back information independently. Belongings gathered and taken downstairs with patient via wheelchair. Pt discharged home with ride from son.
== END 2023-03-27 11:04 | disposition home or self-care (01) ==
LOC: ED 18:11 → AC 21:50
PROVIDERS: Emergency Medicine; Family Medicine; Admitting Provider Hospitalist; Emergency Provider Emergency Medicine; Referring Provider Emergency Medicine; Visit Provider Hospitalist
DX: K52.9 Noninfective gastroenteritis and colitis, unspecified (principal); J98.11 Atelectasis; E87.1 Hypo-osmolality and hyponatremia; K59.00 Constipation, unspecified; I25.10 Atherosclerotic heart disease of native coronary artery without angina pectoris; I10 Essential (primary) hypertension; E78.5 Hyperlipidemia, unspecified; N40.0 Benign prostatic hyperplasia without lower urinary tract symptoms; D64.9 Anemia, unspecified; E03.9 Hypothyroidism, unspecified
CPT/HCPCS: 36415; 74022; 74177; 80048; 80053; 81001; 83690; 85025; 93005; 93010; 96360; 96361; 96372; 99284; G0378; J1644; Q9967